=== PATIENT | female | born 1995 | race Two or more races ===

== ENCOUNTER 2022-09-01 07:59 | Emergency (ER) | payer OTHER ==
[~2022-09-01] VITALS: Ht 172.7 cm; Wt 52.2 kg
--- NOTE | 2022-09-01 08:15 | NUR ---
BIB [facility] 41 FROM HOME, CHEST PAIN SINCE 99,ASA 325 MG AND NTG GIVEN TEST ENG
--- NOTE | 2022-09-01 08:44 | NUR ---
established iv line left ac 20g
--- NOTE | 2022-09-01 08:45 | NUR ---
blood sample obtained sent to lab
[2022-09-01] MEDS: IV NS 0.9% 1,000 ML BAG IV ONE ×2 (09:00→15:30)
[2022-09-01 09:28] LABS: BASOPHILS % (AUTO) 0.1 % (0.0-2.0); HEMATOCRIT 50 % (33-45); HEMOGLOBIN 16.9 g/dL (11.5-14.8); LYMPHOCYTES % (AUTO) 10.3 % (20.0-44.0); MEAN CORPUSCULAR HGB CONC 34 g/dl (31.0-36.0); MEAN CORPUSCULAR VOLUME 101 fL (82-100); MONOCYTES # (AUTO) 0.4 K/uL (0.1-1.30); MONOCYTES % (AUTO) 4.2 % (2.0-12.0); NEUTROPHILS # (AUTO) 8.5 K/uL (1.8-8.9); NEUTROPHILS % (AUTO) 85.4 % (43.0-81.0); PLATELET COUNT (AUTO) 227 K/uL (150-450); RED BLOOD CELL COUNT(AUTO) 4.97 MIL/uL (4.0-5.2); WHITE BLOOD COUNT (AUTO) 9.9 K/uL (4.3-11.0)
[2022-09-01 09:40] LABS: CALCIUM, SERUM 9.9 mg/dL (8.5-10.1); CREATININE 0.8 mg/dL (0.6-1.3); POTASSIUM 3.2 mmol/L (3.5-5.1)
[2022-09-01 09:45] LABS: ALBUMIN 5.6 g/dL (3.4-5.0); BILIRUBIN,DIRECT 0.2 mg/dL (0.0-0.2); BILIRUBIN,TOTAL 0.7 mg/dL (0.2-1.0); TOTAL PROTEIN, SERUM 10.1 g/dL (6.4-8.2)
[2022-09-01 09:50] LABS: BILIRUBIN,URINE NEGATIVE (NEGATIVE); COLOR,URINE YELLOW (YELLOW); LEUKOCYTE ESTERASE ,URINE NEGATIVE (NEGATIVE); NITRITE, URINE NEGATIVE (NEGATIVE); PH,URINE 7.5 (5.0-8.0); PROTEIN,URINE NEGATIVE (NEGATIVE); UGLUCOSE NEGATIVE (NEGATIVE); UROBILINOGEN,URINE 0.2 EU/dL (0.2)
[2022-09-01] MEDS ORDERED: diphenhydrAMINE HCL 50 MG/ML VIAL ONE (09:51)
[2022-09-01] MEDS ORDERED: IOHEXOL-300 100 ML VIAL IV ONE (10:00)
[2022-09-01] MEDS: diphenhydrAMINE HCL 50 MG/ML VIAL IV ONE (10:00)
[2022-09-01] MEDS ORDERED: IV NS 0.9% 250 ML IV ONE (10:00)
[2022-09-01 10:06] LABS: BACTERIA,URINE Few /HPF (None Seen); RBC,URINE 0-2 /HPF (0-2); SQUAMOUS EPITHELIAL CELL,UR Few /HPF (None Seen); WBC,URINE 0-2 /HPF (0-3)
--- NOTE | 2022-09-01 10:21 | NUR ---
taken to ct
[2022-09-01] MEDS ORDERED: ONDANSETRON HCL/PF 4 MG/2 ML VIAL ONE (10:52)
[2022-09-01] MEDS: ONDANSETRON HCL/PF 4 MG/2 ML VIAL IV ONE (11:00)
[2022-09-01] MEDS: HALOPERIDOL LACTATE INJ 5 MG/ML VIAL IM ONE (15:00)
[2022-09-01] MEDS ORDERED: HALOPERIDOL LACTATE INJ 5 MG/ML VIAL ONE (15:05)
[2022-09-01] MEDS: POTASSIUM CHLORIDE 20 MEQ TAB.PRT.SR PO ONE (15:30)
[2022-09-01] MEDS ORDERED: ONDA4TAB5 PO (15:44)
[2022-09-01] MEDS ORDERED: POTASSIUM CHLORIDE 20 MEQ TAB.PRT.SR PO ONE (15:49)
--- NOTE | 2022-09-01 17:02 | NUR ---
IV removed. Catheter intact and site benign. Pressure and 4x4 applied to site. No bleeding noted.
[2022-09-01 17:03] VITALS: BP 136/69
--- NOTE | 2022-09-01 17:03 | NUR ---
Patient discharged to home in stable condition. Written and verbal after care instructions given. Patient verbalizes understanding of instruction.
== END 2022-09-01 17:04 | disposition home or self-care (01) ==
LOC: ER 08:30
DX: R11.2 Nausea with vomiting, unspecified (principal); E87.6 Hypokalemia; Z88.8 Allergy status to other drugs, medicaments and biological substances
CPT/HCPCS: 99285; 74177; 96374; 71045; 96361; 96375; 85025; 80048; 83690; 80076; 84703; 81001; 36415; 85730; 96372; J1200; J1630; J2405; J7030; J7050; Q9967